=== PATIENT | female | born 1990 | race Caucasian/White ===

== ENCOUNTER 2018-10-01 08:48 | Inpatient (IN) ==
[2018-10-01 10:20] LABS: Amorphous Crystals,Urine Few /HPF (Few); Apearance,Urine Slightly Hazy (Clear); Bilirubin,Urine Negative (Negative); Blood, Urine Negative (Negative); Glucose,Urine (UA) Negative (Negative); Ketones,Urine Negative (Negative); Mucus,Urine Occasional /LPF (Occasional); Nitrite,Urine Negative (Negative); Protein,Urine Negative; RBC,Urine 4 /HPF (0-4); Squamous Epithelial Cell,Urine Occasional /HPF (0-10); Urine Color Yellow (Yellow); Urine Specific Gravity 1.011 (1.001-1.035); Urine Urobilinogen < 2.0 EU/DL (0.2-1.0); WBC,Urine 1 /HPF (0-6)
[2018-10-01] MEDS ORDERED: BUTORPHANOL 2 MG/ML VIAL IV PRN (13:52)
[2018-10-01] MEDS ORDERED: ONDANSETRON 4 MG/2 ML VIAL IV PRN ×2 (13:52→23:36)
[2018-10-01] MEDS ORDERED: MEPERIDINE 50 MG/1 ML VIAL IV PRN (13:52)
[2018-10-01] MEDS: LACTATED RINGERS 1,000 ML IV SCH ×2 (13:56→17:50)
[2018-10-01] MEDS ORDERED: OXYTOCIN/LR 20 UNIT/1,000 ML BAG IV SCH (14:00)
[2018-10-01 14:15] LABS: Basophils % 0.2 % (0.0-0.8); Eosinophils % 0.5 % (0.00-10.9); Hematocrit 32.8 VOL% (35.7-47.0); Hemoglobin 10.4 GM/DL (12.0-16.0); Immature Granulocytes % 0.6 %; Immature Granulocytes Absolute 0.05 #; Lymphocytes # 2.1 10*3/uL (1.4-4.0); Lymphocytes % 26.7 % (21.3-54.2); Mean Corpuscular HGB Conc 31.7 GM/DL (32-36); Mean Corpuscular Volume 95.6 FL (87-102); Mean Platelet Volume 10.5 FL (9.6-12.0); Monocytes % 7.7 % (1.7-12.7); Neutrophils % 64.3 % (38.7-73.9); Platelet Count 266 T/CUMM (130-400); Red Blood Count 3.43 MC/CUMM (3.8-5.5); Red Cell Distribution Width 13.4 % (9.3-17.3)
[2018-10-01] MEDS ORDERED: CITRIC ACID/SODIUM CITRATE 30 ML UDCUP PO ONE (16:12)
[2018-10-01] MEDS ORDERED: fentaNYL 100 MCG/2 ML VIAL IV ONE (16:12)
[2018-10-01] MEDS ORDERED: LACTATED RINGERS 1,000 ML IV ONE (16:12)
[2018-10-01] MEDS ORDERED: FAMOTIDINE 20 MG/2 ML VIAL IV ONE (16:12)
[2018-10-01] MEDS ORDERED: fentaNYL 2 MCG/ROPIV 0.2% EPID 100 ML EPIDURAL SCH (16:30)
[2018-10-01] MEDS: ePHEDrine 50 MG/ML AMP IV PRN ×3 (17:33→18:23)
[2018-10-01 19:36] LABS: Apearance,Urine CLEAR (Clear); Bilirubin,Urine Negative (Negative); Blood, Urine Small mg/dL (Negative); Glucose,Urine (UA) Negative (Negative); Ketones,Urine 80 mg/dL (Negative); Mucus,Urine Occasional /LPF (Occasional); Nitrite,Urine Negative (Negative); Protein,Urine Negative; RBC,Urine 5 /HPF (0-4); Squamous Epithelial Cell,Urine Occasional /HPF (0-10); Urine Color Yellow (Yellow); Urine Specific Gravity 1.014 (1.001-1.035); Urine Urobilinogen < 2.0 EU/DL (0.2-1.0); WBC,Urine 1 /HPF (0-6)
[2018-10-01] MEDS ORDERED: miSOPROStol 200 MCG TABLET ONE (22:57)
[2018-10-01] MEDS ORDERED: OXYTOCIN/LR 20 UNIT/1,000 ML BAG IV ONE ×2 (22:58→23:36)
[2018-10-01] MEDS ORDERED: METHYLERGONOVINE 0.2 MG/1 ML AMP ONE (22:58)
[2018-10-01] MEDS ORDERED: TRANEXAMIC ACID 1,000 MG/10 ML VIAL ONE (22:58)
[2018-10-01] MEDS ORDERED: CARBOPROST TROMETHAMINE 250 MCG/ML AMP IM ONE (22:58)
[2018-10-01] MEDS ORDERED: LIDOCAINE 1% 50 ML VIAL ONE (22:59)
[2018-10-01] MEDS ORDERED: DIPH/TET/ACEL PERT BOOSTER VACCINE 0.5 ML VIAL IM ONE (23:36)
[2018-10-01] MEDS ORDERED: MEASLES/MUMPS/RUBELLA VACCINE 0.5 ML VIAL SUBCUT ONE (23:36)
[2018-10-01] MEDS ORDERED: HYDROCORTISONE 2.5% RECTAL CREAM 30 GM TUBE TOP PRN (23:36)
[2018-10-01] MEDS ORDERED: BENZOCAINE 20%/MENTHOL 0.5% SPRAY 56 GM CAN TOP PRN (23:36)
[2018-10-01] MEDS ORDERED: oxyCODONE/ACETAMINOPHEN 5-325 MG TABLET PO PRN (23:36)
[2018-10-01] MEDS ORDERED: RHO(D) IMMUNE GLOBULIN 300 MCG SYRINGE IM ONE (23:36)
[2018-10-01] MEDS ORDERED: WITCH HAZEL PADS 100/JAR TOP PRN (23:36)
[2018-10-01] MEDS ORDERED: LANOLIN 50% CREAM 0.3 OZ TUBE TOP PRN (23:36)
[2018-10-01] MEDS ORDERED: ACETAMINOPHEN 325 MG TABLET PO PRN (23:36)
[2018-10-01] MEDS ORDERED: BISACODYL 10 MG SUPP RECTAL PRN (23:36)
[2018-10-02] MEDS: oxyCODONE/ACETAMINOPHEN 5-325 MG TABLET PO PRN ×2 (01:30→07:49)
[2018-10-02] MEDS: IBUPROFEN 800 MG TABLET PO PRN ×3 (01:30→16:19)
[2018-10-02] MEDS: LACTATED RINGERS 1,000 ML IV SCH (02:08)
[2018-10-02 03:44] LABS: Basophils % 0.3 % (0.0-0.8); Eosinophils % 0.2 % (0.00-10.9); Hematocrit 31.6 VOL% (35.7-47.0); Immature Granulocytes % 0.3 %; Immature Granulocytes Absolute 0.03 #; Lymphocytes % 19.3 % (21.3-54.2); Mean Corpuscular HGB Conc 31.6 GM/DL (32-36); Mean Corpuscular Volume 95.5 FL (87-102); Mean Platelet Volume 10.5 FL (9.6-12.0); Monocytes % 4.9 % (1.7-12.7); Platelet Count 250 T/CUMM (130-400); Red Blood Count 3.31 MC/CUMM (3.8-5.5); Red Cell Distribution Width 13.5 % (9.3-17.3); White Blood Count 10.2 T/CUMM (4-12)
[2018-10-02] MEDS: DOCUSATE SODIUM 100 MG CAPSULE PO SCH ×2 (09:42→20:43)
[2018-10-02] MEDS ORDERED: FUROSEMIDE 20 MG/2 ML VIAL IV ONE (21:30)
[2018-10-03] MEDS: oxyCODONE/ACETAMINOPHEN 5-325 MG TABLET PO PRN ×3 (00:09→19:52)
[2018-10-03] MEDS: IBUPROFEN 800 MG TABLET PO PRN ×2 (07:21→13:14)
[2018-10-03] MEDS: DOCUSATE SODIUM 100 MG CAPSULE PO SCH ×2 (09:47→19:52)
[2018-10-03 14:33] LABS: Troponin I < 0.015 NG/ML (0.00-0.045)
[2018-10-03] MEDS ORDERED: FAMOTIDINE 20 MG TABLET PO ONE (15:16)
[2018-10-03] MEDS ORDERED: FUROSEMIDE 20 MG/2 ML VIAL IV ONE (15:16)
[2018-10-03 18:32] LABS: Troponin I < 0.015 NG/ML (0.00-0.045)
[2018-10-03 21:19] LABS: Troponin I < 0.015 NG/ML (0.00-0.045)
[2018-10-04] MEDS: DOCUSATE SODIUM 100 MG CAPSULE PO SCH ×2 (00:39→09:37)
[2018-10-04] MEDS: oxyCODONE/ACETAMINOPHEN 5-325 MG TABLET PO PRN (06:07)
[2018-10-04 11:33] VITALS: BP 94/69
== END 2018-10-04 13:50 | disposition home or self-care (01) | DRG 806 ==
LOC: N.LDOUT 08:48 → N.LD 08:52 → N.OB 10-02 08:30
PROVIDERS: ADMIT Obstetrics & Gynecology; ATTEND Obstetrics & Gynecology